=== PATIENT | female | born 1960 | race Hispanic/Latino ===

== ENCOUNTER 2024-09-02 07:55 | Day surgery (SDC) | payer BC, OTHER ==
--- NOTE | 2024-08-29 12:00 | RAD REPORT ---
EXAMINATION: ONE VIEW CHEST XR CLINICAL INDICATION: Female, 63 years old.,PRE-OP. Hypertension TECHNIQUE: Frontal chest projection is submitted. Examination is limited by patient positioning and t echnique. COMPARISON: No prior exam. FINDINGS: The lungs are well inflated and clear. No pneumothorax or sizable effusion. The heart is normal in s ize. Mediastinal contours are unremarkable. IMPRESSION: No acute intrathoracic abnormalities.
[2024-09-02] MEDS ORDERED: MIDAZOLAM HCL 2 MG/2 ML INJ ONE (08:06)
[2024-09-02] MEDS ORDERED: ONDANSETRON 4 MG/2 ML VIAL ONE (08:06)
[2024-09-02] MEDS ORDERED: LIDOCAINE 1% MPF 5 ML VIAL ONE (08:06)
[2024-09-02] MEDS ORDERED: FENTANYL CITR 100 MCG/2 ML ONE (08:06)
[2024-09-02] MEDS ORDERED: propofoL 200 MG/20 ML VIAL IV ONE (08:06)
[2024-09-02] MEDS: Ringers Lactate 1,000 ML IV ONE (08:28)
[2024-09-02] MEDS: CEFAZOLIN SODIUM 2 GM/VIAL ONE (09:15)
[2024-09-02] MEDS ORDERED: GLYCOPYRROLATE 0.2 MG/ML SYR ONE ×2 (09:45)
[2024-09-02] MEDS ORDERED: CODEINE 30MG/APAP 300MG TAB PO PRN (10:00)
[2024-09-02] MEDS ORDERED: PHENAZOPYRIDINE 100MG TAB PO ONE ×2 (10:00→11:38)
--- NOTE | 2024-09-02 10:08 | RAD REPORT ---
EXAMUrethrocystogrphy Retrograde CLINICAL HISTORY: Left ureteral stent placement FINDINGS: A total of 8 images were sent to PACS, during a fluoroscopically guided retrograde urethrocystograph y. No radiologist was involved in protocoling or performance of the study, and no radiologist was present for the duration of the procedure. No interpretation of the saved images will be provided. Fluoroscopy time 0.3 minutes. Procedure performed by Dr. Balderrama
--- NOTE | 2024-09-02 10:16 | P.OP ---
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 [place] and had been to several emergency departments along the way because of pain dealing with attempts to pass the kidney stone. Unfortunately, she was unsuccessful at passing the stone and was still having pain, as a result, she presented today for definitive management. I reviewed the images of the CT scan, which were uploaded to PACS at the hospital via the disc, and she had a solitary mid ureteral left calculus with no nephrolithiasis present bilaterally. Procedure note: The patient was consented in the preoperative holding area before being transferred to the operative suite where general anesthesia was induced. She was given Ancef 2 g IV antimicrobial prophylaxis, and pneumoboots were provided for DVT prophylaxis. She was placed in the lithotomy position, padded to the table appropriately. Her genitalia was prepped with Hibiclens and she was draped in standard fashion. The case has begun identifying the presence of some prolapse of the posterior aspect of the urethral meatus. I used the 22 Cypriot rigid cystoscope to traverse the urethra and into the bladder with relative ease. There was some bleeding due to the prolapsed mucosa. Upon entry into the bladder, it was surveyed in its entirety, and there were no papillary mucosal lesions, foreign bodies or stones noted throughout. The ureteral orifices were orthotopic in location. I cannulated the left ureteral orifice using the tip of a 5 Cypriot ureteral access catheter. Left retrograde pyelography: Using a 70: 30 mixture of Omnipaque and saline, contrast was injected via the lumen of the 5 Cypriot ureteral access catheter and did propagate up the distal into the mid ureter where it surrounded a point of filling defect at the junction of the body of L4-L5 before ultimately propagating into the proximal ureter and the renal pelvis and calyces where there was mild pelviectasis and caliectasis. As a result, I passed a sensor wire via the 5 Cypriot ureteral access catheter ultimately coiling it within the upper pole of the left kidney. I then removed the 5 Cypriot ureteral access catheter and the cystoscope and backloaded a dual-lumen catheter over the sensor wire navigating it into the mid ureter just distal to the point of filling defect previously seen. There are I injected contrast again to confirm the appropriate intraluminal localization of the catheter, and then I removed the dual-lumen catheter leaving the sensor safety wire in place and performed direct vision semirigid left ureteroscopy. I was able to navigate the semirigid ureteroscope into the ureteral orifice and up the distal into the mid and proximal ureter beyond the point of narrowing and filling defect where some stricture disease was observed, but I was able to gently dilate my way beyond it using the semirigid ureteroscope and ultimately entered the mid proximal ureter. Unfortunately, the stone was no longer present and likely was displaced into the collecting system. As a result, I passed a Bentson guidewire via the lumen of the semirigid ureteroscope and removed the semirigid ureteroscope leaving the Bentson wire in place. I then passed the dual-lumen catheter over the 2 wires into the renal pelvis in order to dilate the stricture narrowing observed to perform flexible ureteroscopy. I allowed it to dilate for several minutes and then remove the dual-lumen catheter and attempted to pass the flexible ureteroscope over the Bentson guidewire. Unfortunately, it would not pass beyond the point of obstruction in the mid ureter at the junction of L4-L5 where the prior stricture disease had been observed. So I then utilized an 11 x 13 Cypriot ureteral access sheath attempting to navigate that beyond the point of stricture narrowing in order to facilitate subsequent ureteroscopy and laser lithotripsy. However, despite attempts, I was not able to navigate the ureteral access sheath beyond the point of resistance and obstruction in the mid ureter at L4-L5. As a result, I discontinued further efforts at ureteroscopy and laser lithotripsy on this occasion, and I backloaded the cystoscope over the indwelling sensor safety wire before passing a 7 Cypriot by 24 cm double-J stent into her collecting system with a coil observed fluoroscopically in the renal pelvis just at the UPJ, and 1 cystoscopically formed in her bladder. She probably could use a 7 x 26 Cypriot stent on subsequent management. I then decompressed her bladder of fluid and urine and remove the cystoscope. She was then taken out of the lithotomy position, awakened from general anesthesia, transferred to a stretcher, and then transferred to the recovery room in good condition. Complications: None Discharge disposition: She may be rescheduled for definitive management via ureteroscopy with laser lithotripsy and stent exchange no sooner than 2 to 3 weeks, but preferably within 30 days from today. If she is unable to be scheduled during that timeframe, follow-up should be established for preop evaluation in the urology clinic within 30 days of the procedure. I sent her a prescription for oxybutynin for stent discomfort.
[2024-09-02] MEDS ORDERED: Ringers Lactate 1,000 ML IV ONE (10:20)
[2024-09-02 12:21] VITALS: BP 145/77; TEMP 97.4; O2SAT 99
== END 2024-09-02 11:51 | disposition home or self-care (01) ==
LOC: OR 07:55
PROVIDERS: ATTEND Urology
PROC: 0T778DZ Dilation of Left Ureter with Intraluminal Device, Via Natural or Artificial Opening Endoscopic (ICD-10-PCS; principal; 2024-09-02 09:15)
DX: N20.1 Calculus of ureter (principal); R10.9 Unspecified abdominal pain; N20.0 Calculus of kidney; N13.5 Crossing vessel and stricture of ureter without hydronephrosis
CPT/HCPCS: 93005; 71045; 74450; 51610; 52332; 52351; J2704; J2003; J2250; J3010; J2405; J7120 ×2

== ENCOUNTER 2024-09-16 07:35 | Day surgery (SDC) | payer BC, OTHER ==
[2024-09-16] MEDS ORDERED: ONDANSETRON 4 MG/2 ML VIAL ONE (08:16)
[2024-09-16] MEDS ORDERED: MIDAZOLAM HCL 2 MG/2 ML INJ ONE (08:16)
[2024-09-16] MEDS ORDERED: FENTANYL CITR 100 MCG/2 ML ONE (08:16)
[2024-09-16] MEDS ORDERED: propofoL 200 MG/20 ML VIAL IV ONE (08:16)
[2024-09-16] MEDS ORDERED: LIDOCAINE 1% MPF 5 ML VIAL ONE (08:16)
[2024-09-16] MEDS: Ringers Lactate 1,000 ML IV ONE (08:20)
[2024-09-16] MEDS ORDERED: AMPICILLIN SODIUM 2 GM/VIAL VIAL ONE (08:46)
[2024-09-16] MEDS: GENTAMICIN 80 MG/100 ML BAG 160 MG/200 ML BAG IV ONE (09:20)
[2024-09-16] MEDS ORDERED: EPHEDRINE SULF 50 MG/ML VIAL ONE (09:34)
[2024-09-16] MEDS ORDERED: ROCURONIUM 50 MG/5 ML VIAL IV ONE (09:46)
--- NOTE | 2024-09-16 10:53 | RAD REPORT ---
EXAM: Fluoroscopy use, cysto HISTORY: cysto left stent exchange COMPARISON: None FINDINGS: Multiple images were sent to PACS, during a fluoroscopically guided procedure. No radiologi st was involved in protocoling or performance of the study, and no radiologist was present for the duration of the procedure. No interpretation of the saved images will be provided. Total fluoroscopy time: 0.29. IMPRESSION: Documentation of fluoroscopy use as above. Transcribed Date/Time: 09/16/2024 10:53 AM
[2024-09-16 11:14] VITALS: TEMP 98.1
[2024-09-16] MEDS: HYDROCODONE/APAP 5/325 MG TAB ONE (12:04)
[2024-09-16 12:46] VITALS: O2SAT 100
[2024-09-16 12:47] VITALS: BP 125/55
--- NOTE | 2024-09-16 16:38 | P.OP ---
Date of Service: 09/16/24 Preoperative diagnoses: Left 8 mm ureterolithiasis Urinary retention Postoperative diagnoses: Left 8 mm ureterolithiasis Left proximal ureteral stricture disease Urinary retention Principal procedures: Cystoscopy with left ureteral stent extraction Left retrograde pyelography Laser incision of left proximal ureteral stricture disease Left proximal ureteral stricture dilatation Left ureteroscopy with pyeloscopy and laser lithotripsy Left ureteroscopic stone basketing Left 8 Libyan ureteral stent replacement Urethral Leon catheter replacement Indication for procedure: 63-year-old woman with history of prolonged and impacted left 8 [place] placed a stent with evidence of a proximal ureteral filling defect on the prior excursion, and in the region of filling defect, ureteroscopy performed previously did not reveal the stone in that location. Instead, there was evidence of mucosal impaction from the calculus. Additionally, postoperatively, the patient had issues with recurrent urinary retention that defied voiding trial attempts. As a result, she was given ciprofloxacin for antimicrobial prophylaxis in advance of surgical excursion today. Procedure note: The patient was consented in the preoperative holding area before being transferred to the operative suite where general anesthesia was induced. She was given ampicillin 2 g and gentamicin 160 mg IV antimicrobial prophylaxis. Pneumoboots were provided for DVT prophylaxis. She was placed in the lithotomy position, padded and secured to the table appropriately. Her genitalia was prepped with Hibiclens and she was draped in standard fashion, after the urethral Leon catheter had been removed. The case was begun using a 22 Libyan rigid cystoscope to traverse the urethra and into the bladder with ease. There was no urethral stricture disease or obstruction observed. The stent was noted to emanate from the left ureteral orifice, and the tip of the coil of the stent was grasped using an alligator grasper and I brought the tip to the meatus. I then advanced a sensor wire via the stent all the way putatively into the collecting system as evidenced by the wire coiling. I then advanced a dual- lumen catheter over the sensor wire into the distal ureter and injected contrast. Left retrograde pyelography: Using a 70: 30 mixture of Omnipaque and saline, contrast was injected via the second lumen of the dual-lumen catheter and did propagate up the distal into the mid and proximal ureter before entering the renal pelvis and calyces. The following are the findings: Calcific density observed in the proximal ureter, suspected to be the stone that perhaps had migrated back into the ureter associated with some aberrant progression of contrast in that location. As a result, I utilized a semirigid ureteroscope passed alongside the indwelling sensor safety wire into the distal ureter and was able to navigated into the mid and proximal ureter however in the proximal ureter, there was a point of dense stenosis that was just wide enough to admit the sensor wire. Beneath this point of obstruction, no stone was noted. As a result, I utilized a 272 nm laser fiber via the semirigid ureteroscope and I incised the clear component of the stricture disease that was present medially within the ureter. This was only incised until the level of the normal mucosa without any effort to go deep into the muscularis. I then advanced the semirigid ureteroscope beyond the point of obstruction into the proximal ureter and then decompressed the kidney. I then advanced a Bentson guidewire via the semirigid ureteroscope under direct vision ultimately into the collecting system and removed the semirigid ureteroscope leaving the wire in place. Over the Bentson guidewire, I passed the dual-lumen catheter beyond the point of incised stricture all the way into the collecting system as evidenced fluoroscopically. I then remove the dual-lumen catheter and passed a 12 x 14 Libyan ureteral access sheath over the Bentson guidewire up to the point of obstruction where significant resistance was encountered. With some manipulation, I was able to gently pass the ureteral access sheath all the way into the renal pelvis. I injected via the ureteral access sheath a mixture of Omnipaque and saline to confirm the appropriate collecting system localization of the ureteral access sheath. At this point, I then utilized the flexible ureteroscope passed into his renal pelvis and ultimately into the upper pole calyceal system where I encountered the calculus at the infundibulum. I then utilized the 272 nm laser fiber to begin to fragment the calculus. It was very hard and composition; so I increased the power from 1 J and 15 Hz to 1 J and 25 Hz. There were some issues with the laser machine requiring switching the laser fiber and the blast shield before I had to switch the laser fiber an additional time, this time to a 365 nm laser fiber in order to complete treatment and fragmentation of the stone. Of note, between the switching of the laser fibers, I basketed the stone and delivered it into the upper pole calyx in order to stabilize it for subsequent in-depth fragmentation required. Once I had fragmented the stone ostensibly, I then utilized that basket to grasp and remove the larger of the fragments. These were collected and sent for chemical analysis. I then removed the ureteral access sheath under direct vision and surveyed the point of proximal ureteral obstruction that was dilated. About two thirds of the mucosa was demucosalized; so I then backloaded the cystoscope over the indwelling safety sensor wire and passed a 8 Libyan by 26 cm double-J ureteral stent into the upper pole collecting system with a coil observed fluoroscopically there and 1 cystoscopically formed in her bladder. I then removed the cystoscope and placed an 18 Libyan Leon catheter via her urethra into her bladder with ease. 10 cc of sterile water was placed in the balloon. The patient was then taken out of the lithotomy position, awakened from general anesthesia, transferred to a stretcher, and then transferred to the recovery room in good condition. Complications: None Discharge disposition: She will be instructed to remove the catheter tomorrow morning at 7 AM to complete a voiding trial until 1 PM. Should she be unsuccessful at voiding adequately, she was counseled to come to the office. Regardless, she should come in for a bladder scan postvoid residual assessment between 1 to 3 PM tomorrow Subsequent follow-up to perform cystoscopy and left ureteral stent extraction in the office should be performed in 4 to 6 weeks. If reinsertion of a catheter is required, 1 to 2 weeks prior to scheduled cystoscopy and left ureteral stent extraction, a catheter culture should be sent so that she may be started on antimicrobials in advance of stent extraction in the office. Also, if reinsertion of the catheter is required, once the stent has been removed, we will arrange urodynamics evaluation. Patient acknowledged preoperatively that she had significant issues with urinary frequency and a sense of incomplete emptying even prior to initial stent placement; so many of her issues with voiding dysfunction may be pre-existing, and a neurologic evaluation may be necessary to rule out MS or other neurologic disease.
== END 2024-09-16 12:45 | disposition home or self-care (01) ==
LOC: OR 07:35
PROVIDERS: ATTEND Urology
PROC: 0T778DZ Dilation of Left Ureter with Intraluminal Device, Via Natural or Artificial Opening Endoscopic (ICD-10-PCS; 2024-09-16)
PROC: 0TC78ZZ Extirpation of Matter from Left Ureter, Via Natural or Artificial Opening Endoscopic (ICD-10-PCS; principal; 2024-09-16 10:30)
DX: N20.1 Calculus of ureter (principal); R33.9 Retention of urine, unspecified; N13.5 Crossing vessel and stricture of ureter without hydronephrosis
CPT/HCPCS: 88300; 82360; 74450; 51610; 52356; 52344; J2704; J2003; J2250; J3010; J2405; J0290; J7120; J1580